=== PATIENT | female | born 1975 | race Two or more races ===

== ENCOUNTER 2016-11-19 13:29 | Observation (INO) | payer OTHER ==
[~2016-11-19] VITALS: Ht 167.6 cm; Wt 72.6 kg
[2016-11-19 14:25] LABS: Basophils # (auto) 0 uL; Basophils % (auto) 0.8 % (0.0-2.0); CONDITION Y; Eosinophils # (auto) 0.1 uL; Hematocrit 41.7 % (36.0-46.0); Hemoglobin 14.4 g/dL (12.2-16.2); Lymphocytes # (auto) 1.8 uL; Lymphocytes % (auto) 33.1 % (10.0-50.0); Mean Corpuscular Hemoglobin 31.2 pg (28.0-32.0); Mean Corpuscular Hgb Conc. 34.6 g/dL (32.0-36.0); Mean Corpuscular Volume 90.1 fL (80.0-100.0); Mean Platelet Volume 10.7 fL (7.4-10.4); Monocytes # (auto) 0.2 uL; Monocytes % (auto) 3.2 % (0.0-12.0); Neutrophils # (auto) 3.4 uL; Neutrophils % (auto) 61.9 % (37.0-80.0); Platelet Count (auto) 222 10^3/uL (140-450); Red Cell Distribution Width 13.2 % (11.6-16.0); White Blood Cell 5.6 10^3/uL (4.4-10.8)
[2016-11-19 14:48] LABS: Albumin 3.7 g/dL (3.4-5.0); BUN/Creatinine Ratio 18.2; Bilirubin, Total 0.4 mg/dL (0.2-1.0); Calcium 8.5 mg/dL (8.5-10.1); Potassium 3.2 mmol/L (3.5-5.1); Total Protein 7.6 g/dL (6.4-8.2)
[2016-11-19] MEDS ORDERED: SODIUM CHLORIDE 0.9% 1,000 ML IVB ONE (14:49)
[2016-11-19] MEDS ORDERED: ONDANSETRON HCL 4 MG/2 ML VIAL IV ONE (15:00)
[2016-11-19 16:22] LABS: Urine Bilirubin Negative (Negative); Urine Color Yellow (Yellow); Urine Mucus FEW (None Seen); Urine Nitrite Negative (Negative); Urine RBC <1 /hpf (0 - 4); Urine Squamous Epithelial Cell FEW /hpf (<5); Urine Urobilinogen Normal (Negative); Urine pH 6.5 (5.0-8.0)
[2016-11-19 16:39] LABS: Urine Blood 1+ /uL (Negative); Urine Glucose 1+ mg/dL (Normal); Urine Ketone 2+ (Negative)
[2016-11-19] MEDS ORDERED: POTASSIUM CHL 20 Meq TABLET PO ONE (17:45)
[2016-11-19 18:03] VITALS: BP 132/75
== END 2016-11-19 18:15 | disposition home or self-care (01) | DRG 811 ==
LOC: ER 13:31 → OVERFLOW 14:50 → ER 18:15
PROVIDERS: ADMIT Family Medicine; ATTEND Family Medicine
DX: T78.1XXA Other adverse food reactions, not elsewhere classified, initial encounter (principal); E87.6 Hypokalemia; R11.0 Nausea; X58.XXXA Exposure to other specified factors, initial encounter
CPT/HCPCS: 36415; 71010; 80053; 81001; 81025; 82962; 85025; 93005; 96361; 96374; 99285; G0378; J2405; J7030

== ENCOUNTER 2018-11-20 20:24 | Emergency (ER) | payer OTHER ==
[~2018-11-20] VITALS: Ht 167.6 cm; Wt 65.8 kg
[2018-11-20 21:04] VITALS: BP 111/78
== END 2018-11-20 23:51 | disposition left against medical advice (07) ==
LOC: ER 20:26
DX: M54.2 Cervicalgia (principal); Z53.21 Procedure and treatment not carried out due to patient leaving prior to being seen by health care provider

== ENCOUNTER 2021-03-26 09:11 | Emergency (ER) | payer MEDICAID, OTHER ==
[~2021-03-26] VITALS: Ht 167.6 cm; Wt 68.0 kg
[2021-03-26 09:33] VITALS: BP 95/56
[2021-03-26] MEDS ORDERED: CEPH500T PO (09:37)
== END 2021-03-26 09:54 | disposition home or self-care (01) ==
LOC: ER 09:11
DX: S61.442A Puncture wound with foreign body of left hand, initial encounter (principal); Z90.49 Acquired absence of other specified parts of digestive tract; Z79.899 Other long term (current) drug therapy; W45.8XXA Other foreign body or object entering through skin, initial encounter; Y93.89 Activity, other specified; Y92.89 Other specified places as the place of occurrence of the external cause; Y99.8 Other external cause status